=== PATIENT | male | born 1995 | race Caucasian/White ===

== ENCOUNTER 2021-04-04 13:42 | Emergency (ER) | payer MEDICAID ==
[~2021-04-04] VITALS: Ht 175.3 cm; Wt 105.0 kg
[2021-04-04] MEDS ORDERED: IBUPROFEN 400MG TABLET PO ONE (15:30)
[2021-04-04] MEDS ORDERED: ACETAMINOPHEN 325MG TABLET PO ONE (15:30)
[2021-04-04 17:13] VITALS: BP 122/76
== END 2021-04-04 17:25 | disposition home or self-care (01) ==
LOC: ER 13:42
DX: S70.311A Abrasion, right thigh, initial encounter (principal); S60.512A Abrasion of left hand, initial encounter; S60.511A Abrasion of right hand, initial encounter; M79.605 Pain in left leg; V29.88XA Motorcycle rider (driver) (passenger) injured in other specified transport accidents, initial encounter; Y93.89 Activity, other specified; Y92.89 Other specified places as the place of occurrence of the external cause; Y99.8 Other external cause status
CPT/HCPCS: 99283